=== PATIENT | male | born 1995 | race Caucasian/White ===

== ENCOUNTER 2022-08-02 20:08 | Emergency (ER) | payer BC ==
[2022-08-02 20:15] VITALS: BP 152/90; PULSE 100; RESP 17; TEMP 98.1; BMI 27.2
[2022-08-02] MEDS ORDERED: DEXAMETHASONE 4 MG TABLET (FP) PO ONE (20:30)
[2022-08-02] MEDS ORDERED: DEXAMETHASONE SOD PHOSPHATE 10 MG/1 ML VIAL ONE (20:42)
== END 2022-08-02 21:53 | disposition home or self-care (01) ==
LOC: JERFT 20:08
DX: T78.40XA Allergy, unspecified, initial encounter (principal)
CPT/HCPCS: 99283-25